=== PATIENT | female | born 1985 | race Caucasian/White ===

== ENCOUNTER → 2021-07-21 | Outpatient (CLI) | payer OTHER ==
[~2021-07-21] MED LIST: ALDACTONE50 MG PO; DITROPAN 5 MG TA5 MG PO; GLUCOPHAGE500 MG PO; NORCO 5-325 TA1 EACH PO; PROMETRIUM 200200 MG PO; ZOFRAN ODT 4 MG4 MG PO
== END ==
LOC: KOH-I 16:35
DX: M54.50 Low back pain, unspecified (principal); M25.50 Pain in unspecified joint; G56.03 Carpal tunnel syndrome, bilateral upper limbs; R20.0 Anesthesia of skin; M79.641 Pain in right hand; M79.642 Pain in left hand
CPT/HCPCS: 72100; 72170

== ENCOUNTER → 2021-10-27 | Outpatient (CLI) | payer OTHER | LOC: EXRD 13:20 | DX: M46.1 Sacroiliitis, not elsewhere classified (principal); M47.818 Spondylosis without myelopathy or radiculopathy, sacral and sacrococcygeal region | CPT/HCPCS: 72202 ==